=== PATIENT | female | born 1975 | race Asian ===

== ENCOUNTER 2016-09-23 10:16 | Outpatient (CLI) | payer OTHER | END 2016-09-23 23:59 | DX: M79.641 Pain in right hand (principal) ==

== ENCOUNTER 2017-07-01 12:33 | Outpatient (CLI) | payer OTHER ==
[~2017-07-01 12:33] MED LIST: GADOBUTROL 10 MMOL/10 ML VIAL ONE
[2017-07-01] MEDS ORDERED: GADOBUTROL 10 MMOL/10 ML VIAL IVP ONE (13:52)
--- NOTE | 2017-07-01 15:56 | MRI Report ---
EXAM: MR PELVIS WITH AND WITHOUT CONTRAST (MR FEMALE PELVIS) EXAM DATE: 07/01/2017 02:15 PM. CLINICAL HISTORY: INTERMITTENT PELVIC PAIN. COMPARISON: None. TECHNIQUE: Multiplanar breath-hold T1, T2 obtained through the pelvis on an MR scanner. Images obtai lucinda before and after administration of 9 mL Gadavist intravenous contrast. FINDINGS: Reproductive Organs: Uterus: The uterus is anteverted and measures 11.2 x 6.6 x 6.9 cm with volume 267 cc. The endometrial stripe measures 2 mm. Anterior lower uterine segment section scar. Posterior fundal intramural fibroid measures 2.5 x 2.5 x 3.1 cm. Subserosal fundal fibroid measures 2.0 x 1.5 cm x 2.1 cm. Multiple smaller fibroids may be present. Multiple prominent nabothian cysts measure up to 1.7 cm anteriorly. Right Ovary: The right ovary measures 2.3 x 3.3 x 2.9 cm with volume 11.5 cc. 1.3 cm T1 hyperintense cystic lesion may be from an endometrioma or hemorrhagic cyst. Left Ovary: The left ovary measures 2.1 x 3.3 x 2.3 cm with volume 8.3 cc. The left ovary appears nor mal. Bowel: The visualized portions of the small bowel, colon, and rectum appear normal. Bladder: The urinary bladder appears normal. Other: None. IMPRESSION: 1. Fibroid uterus. 2. A 1.3 cm right ovarian hemorrhagic cyst versus endometrioma. [facility] Referring Provider Line: [phone] SITE ID: [id number]
== END 2017-07-01 12:34 | disposition home or self-care (01) ==
LOC: DI 12:33
PROVIDERS: ATTEND Physician Assistant Medical
DX: D25.9 Leiomyoma of uterus, unspecified (principal); D25.1 Intramural leiomyoma of uterus; D25.2 Subserosal leiomyoma of uterus; N83.9 Noninflammatory disorder of ovary, fallopian tube and broad ligament, unspecified
CPT/HCPCS: 72197; A9585

== ENCOUNTER 2017-07-27 10:15 | Outpatient (CLI) | payer OTHER | END 2017-07-27 10:16 | disposition home or self-care (01) | LOC: SC 10:15 | PROVIDERS: ATTEND Internal Medicine Pulmonary Disease | DX: G47.33 Obstructive sleep apnea (adult) (pediatric) (principal) | CPT/HCPCS: 99203; 99212 ==

== ENCOUNTER 2017-09-13 20:37 | Outpatient (CLI) | payer OTHER | END 2017-09-13 20:38 | disposition home or self-care (01) | LOC: SC 20:37 | PROVIDERS: ATTEND Internal Medicine Pulmonary Disease | DX: G47.33 Obstructive sleep apnea (adult) (pediatric) (principal) | CPT/HCPCS: 95810 ==

== ENCOUNTER 2017-10-21 14:12 | Outpatient (CLI) | payer OTHER | END 2017-10-21 14:13 | disposition home or self-care (01) | LOC: SC 14:12 | PROVIDERS: ATTEND Nurse Practitioner Family | DX: G47.33 Obstructive sleep apnea (adult) (pediatric) (principal) | CPT/HCPCS: 99214 ==